=== PATIENT | male | born 1975 | race Caucasian/White ===

== ENCOUNTER 2024-06-02 22:02 | Emergency (ER) | payer OTHER ==
[~2024-06-02] VITALS: Ht 172.7 cm; Wt 104.3 kg
[2024-06-02] MEDS ORDERED: LORazepam 1 MG Tab PO ONE (22:30)
== END 2024-06-02 22:43 | disposition home or self-care (01) ==
LOC: ER 22:02
DX: R44.0 Auditory hallucinations (principal); F41.9 Anxiety disorder, unspecified
CPT/HCPCS: 99282; A9270